=== PATIENT | female | born 1975 | race Caucasian/White ===

== ENCOUNTER 2016-11-12 09:42 | Observation (INO) ==
[2016-11-12] MEDS ORDERED: Ondansetron ODT 4 MG TAB.RAPDIS SL ONE (10:11)
[2016-11-12] MEDS ORDERED: *HR* OxyCODONE/APAP 5/325 TABLET PO ONE (10:11)
--- NOTE | 2016-11-12 10:12 | Emergency Department Note ---
Disposition Clinical Impression: Abdominal pain, Pancreatitis Disposition: Admitted As Inpatient Condition: Fair Referrals: Merlyn Dempsey [employer]GIS[employer] [Primary Care Provider] - Forms: Work/School Release, ED Satisfaction Letter Time of Disposition: 11:38 (pablito almontestephanie ) Abdominal Pain HPI - General Chief Complaint: ED Abdominal Pain Stated Complaint: Abdominal Pain Time Seen by Provider: 11/12/16 09:50 Source: patient Mode of arrival: ambulatory Limitations: no limitations Nursing Notes Reviewed: Yes Vital Signs Reviewed: Yes - History of Present Illness HPI Narrative: Seen last evening for onset of early pancreatitis numbers were mild enough they send her home pain medication and antiemetics patient did not fill the scripts as result she comes in this morning still having not filled her prescription having pain requesting possible admission since she is having nausea vomiting abdominal pain shot sharp stabbing through to the back denies any diarrhea denies any vomiting of any blood or numbness tingling recent weight gain but has not had no documented weight loss patient here for evaluation Pt Subjective Complaint: abdominal pain Onset (ago): day(s) (2) Consistency: Worsening Location: periumbilical Pain Severity: severe Pain Scale: 10 Quality: stabbing Radiation: back Improves with: nothing Worsens with: eating Context: history of similar episodes (due to pancreatitis) Associated symptoms: Reports: nausea, vomiting. Denies: diarrhea, fever, chills , constipation, dysuria, hematemesis, hematochezia, melena, hematuria, anorexia , syncope Treatments prior to arrival: prescription analgesics (did not fill script) - Related Data Home Medications Medication Instructions Recorded Confirmed Metoprolol [Lopressor] 50 mg PO BID 05/27/15 11/11/16 Omeprazole [PriLOSEC] 40 mg PO DAILY 05/19/16 11/11/16 Lisinopril [Zestril] 30 mg PO DAILY 07/19/16 11/11/16 Lipase/Protease/Amylase [Jayesh Ridley 1.5 each PO TID 08/20/16 11/11/16 12,000 Units Capsule] Previous Rx's Medication Instructions Recorded OxyCODONE/APAP 5/325 [Percocet 1 each PO Q4HR PRN #14 tablet 11/11/16 5/325 MG] Promethazine [Phenergan] 25 mg PO Q6HR PRN #14 tablet 11/11/16 Allergies Allergy/AdvReac Type Severity Reaction Status Date / Time hydrocodone [From Vicodin] AdvReac Hives Verified 05/19/16 14:19 loratadine [From Claritin] AdvReac Hives Verified 05/19/16 14:19 morphine AdvReac Hives Verified 05/19/16 14:19 naproxen AdvReac Hives Verified 05/19/16 14:19 All systems ED: reviewed and negative except as stated. Constitutional: Denies: fever, chills, weakness Eyes: Denies: vision change ENT ED: Denies: ear pain, throat pain Cardiovascular: Denies: chest pain, palpitations Respiratory: Denies: cough, dyspnea, wheezes Gastrointestinal: Reports: abdominal pain, nausea, vomiting. Denies: hematemesis Genitourinary: Denies: urgency, dysuria, frequency Musculoskeletal: Reports: back pain. Denies: neck pain Integumentary: Denies: rash Neurological: Denies: headache Psychiatric: Reports: anxiety Endocrine: Denies: fatigue Hematological/Lymphatic: Denies: easy bleeding Allergic/Immunologic: Denies: facial swelling Abdominal Pain PMH - Past Medical History Medical history: Reports: GERD, hypertension, TIA, other Female Surgical History: Reports: appendectomy, cholecystectomy, hysterectomy VOCATIONAL NURSE history: Reports: cervical cancer Psychiatric history: Reports: no psych history - Social History Smoking status: Current every day smoker Alcohol use: Reports: occasionally Drug use: Reports: none Physical Exam - General Limitations: no limitations General appearance: alert, in no apparent distress, anxious - Head Head exam: atraumatic, normocephalic, normal inspection - Eye Eye exam: Present: normal appearance, PERRL, EOMI - ENT ENT exam: normal exam, normal oropharynx, mucous membranes moist, normal external ear exam - Neck Neck exam: Present: normal inspection, full ROM, trachea midline - Chest Chest inspection: Present: normal inspection, symmetric chest wall rise - Respiratory Respiratory exam: Present: normal lung sounds bilaterally - Cardiovascular Cardiovascular exam: Present: regular rate, normal rhythm, normal heart sounds - Abdominal Exam Abdominal exam: Present: soft, tenderness, guarding, normal bowel sounds. Absent: mass, pulsatile mass - Extremities Exam Extremities exam: Present: normal inspection, full ROM, normal capillary refill. Absent: tenderness - Expanded Lower Extremity Exam Neurovascular/Tendon exam: Present: normal capillary refill, normal fine/light touch - Back Exam Back exam: Absent: normal inspection, full ROM, muscle spasm - Neurological Exam Neurological exam: Present: alert, oriented X3, CN II-XII intact - Psychiatric Psychiatric exam: Present: normal affect, normal mood - Skin Skin exam: Present: warm, dry, intact, normal color Course Course Narrative: Seen and examined given oral medication she was able to keep down patient had IV established was given IV pain medications admitted for observation [address] Martinez for further management Vital Signs Temperature 99.0 F 11/12/16 09:46 Pulse Rate 108 11/12/16 09:46 Respiratory Rate 16 11/12/16 09:46 Blood Pressure 198/88 11/12/16 09:46 O2 Sat by Pulse Oximetry 98 11/12/16 09:46 Temperature 99.0 F 11/12/16 09:46 Pulse Rate 108 11/12/16 09:46 Respiratory Rate 16 11/12/16 09:46 Blood Pressure 198/88 11/12/16 09:46 O2 Sat by Pulse Oximetry 98 11/12/16 09:46 Oxygen Delivery Oxygen Delivery Room Air Abdominal Pain - Differential Diagnosis Differential Diagnosis: Likely: abdominal pain non-specific, diverticulosis, pancreatitis, other - Medical Records Medical records reviewed: Yes I reviewed the patient's medical records. - Lab Data Lab results reviewed: Yes I reviewed the patient's lab results. Result diagrams: 11/12/16 10:34 11/12/16 10:34 Lab Results 11/12/16 11/12/16 Range/Units 10:34 10:34 WBC 7.9 (4.3-11.1) K/mcL RBC 4.75 (3.82-4.97) M/mcL Hgb 14.4 (11.5-15.4) g/dL Hct 43.1 (35.3-44.9) % MCV 90.7 (83.0-100.0) fL MCH 30.3 (28.0-33.3) pg MCHC 33.4 (31.6-35.5) g/dL RDW 16.8 H (11.5-14.5) % Plt Count 261 (140-400) K/mcL MPV 10.0 (9.4-12.4) fL Immature Gran % 0.4 (0-4) % Seg Neutrophils % 59.0 % Lymphocytes % 29.4 % Monocytes % 8.4 % Eosinophils % 2.0 % Basophils % 0.8 % Neutrophils # 4.7 (1.6-8.9) K/mcL Lymphocytes # 2.3 (0.6-4.6) K/mcL Monocytes # 0.7 (0.0-1.3) K/mcL Eosinophils # 0.2 (0.0-0.6) K/mcL Basophils # 0.1 (0.0-0.2) K/mcL Sodium 133 L (136-145) mEq/L Potassium 4.0 (3.5-4.5) mEq/L Chloride 101 (98-109) mEq/L Carbon Dioxide 23 (19-29) mEq/L BUN 6 L (7-20) mg/dL Creatinine 0.99 (0.57-1.11) mg/dL Est GFR ( Amer) > 60 (> 60) Est GFR (Non-Af Amer) > 60 (> 60) BUN/Creatinine Ratio 6 (6-26) Glucose 109 H (70-99) mg/dL Calculated Osmolality 274 L (280-300) Calcium 9.5 (8.6-10.8) mg/dL Total Bilirubin 0.6 (0.2-1.2) mg/dL AST 18 (5-34) Units/L ALT 12 (0-55) Units/L Alkaline Phosphatase 114 (38-126) Units/L Serum Total Protein 7.5 (6.0-8.3) g/dL Albumin 3.7 (3.5-5.0) g/dL Globulin 3.8 H (2.4-3.5) g/dL Albumin/Globulin Ratio 1.0 L (1.1-2.2) Lipase 217 H (8-78) Units/L Critical Care Time Critical Care Time: No
[2016-11-12 10:43] LABS: Basophils # 0.1 K/mcL (0.0-0.2); Basophils % 0.8 %; Eosinophils # 0.2 K/mcL (0.0-0.6); Hematocrit 43.1 % (35.3-44.9); Hemoglobin 14.4 g/dL (11.5-15.4); Immature Granulocytes % 0.4 % (0-4); Lymphocytes # 2.3 K/mcL (0.6-4.6); Lymphocytes % 29.4 %; Mean Corpuscular HGB Conc 33.4 g/dL (31.6-35.5); Mean Corpuscular Hemoglobin 30.3 pg (28.0-33.3); Mean Corpuscular Volume 90.7 fL (83.0-100.0); Monocytes # 0.7 K/mcL (0.0-1.3); Monocytes % 8.4 %; Neutrophils # 4.7 K/mcL (1.6-8.9); Platelet Count 261 K/mcL (140-400); Red Blood Count 4.75 M/mcL (3.82-4.97); Red Cell Distribution Width 16.8 % (11.5-14.5)
[2016-11-12 11:01] LABS: Alanine Aminotransferase 12 Units/L (0-55); Albumin 3.7 g/dL (3.5-5.0); Alkaline Phosphatase 114 Units/L (38-126); Aspartate Amino Transferase 18 Units/L (5-34); BUN/Creatinine Ratio 6 (6-26); Bilirubin,Total 0.6 mg/dL (0.2-1.2); Blood Urea Nitrogen 6 mg/dL (7-20); Calcium 9.5 mg/dL (8.6-10.8); Carbon Dioxide 23 mEq/L (19-29); Chloride 101 mEq/L (98-109); Globulin 3.8 g/dL (2.4-3.5); Glucose 109 mg/dL (70-99); Lipase 217 Units/L (8-78); Osmolality,Calculated 274 (280-300); Sodium 133 mEq/L (136-145); Total Protein 7.5 g/dL (6.0-8.3); eGFR For African Americans > 60 (> 60); eGFR For Non-African Americans > 60 (> 60)
[2016-11-12] MEDS ORDERED: 0.9 % Sodium Chloride 1,000 ML IVC ONE (11:18)
[2016-11-12] MEDS ORDERED: *HR* Promethazine 25 MG/ML VIAL IV ONE (11:18)
[2016-11-12] MEDS ORDERED: 0.9 % Sodium Chloride 1,000 ML IVC SCH (12:35)
[2016-11-12] MEDS ORDERED: Ondansetron 4 MG/2 ML VIAL IVP PRN (12:35)
[2016-11-12] MEDS ORDERED: Naloxone 0.4 MG/ML INJ IVP PRN (12:35)
[2016-11-12] MEDS: *HR* HYDROmorphone (PF) 1 MG/ML SYRINGE IVP PRN ×3 (13:14→21:33)
--- NOTE | 2016-11-12 15:12 | Internal Med History&Physical ---
Date of Encounter: 11/12/16 Time of Encounter: 14:40 Assessment and Plan (1) Acute recurrent pancreatitis Current visit: No Status: Acute She has been started on IV fluids. Parenteral analgesics will be given as needed. Diet will be progressed as tolerated. (2) Iron deficiency Current visit: Yes Status: Acute Labs from 02/21/2016 showed iron 30, transferrin saturation 7%, transferrin 290 and ferritin 25. Recheck labs in a.m. (3) Folate deficiency Current visit: Yes Status: Acute Folate level was 4.5 on 02/21/2016. We will recheck labs in a.m. (4) High blood pressure Current visit: Yes Status: Chronic Continue Zestril and Lopressor. Qualifiers: Hypertension type: essential hypertension Qualified Code(s): I10 - Essential (primary) hypertension Internal Medicine - H&P: HPI Chief complaint: Abdominal pain Admitted From: Home Plans for Post Hospital Care: Home History of present illness: Ms. Haynes is a 41 year old female who came to emergency room the evening of November 11 complaining she had onset of abdominal pain November 06. She was felt to have mild pancreatitis with lipase elevated at 162. She was treated and released. The pain persisted and worsened so she returned to emergency room this morning. She had further rise in her lipase to 217 and was admitted to [facility] floor for ongoing care needs. She was hospitalized last at [facility] July 2016 with acute recurrent pancreatitis. She has been hospitalized several times in the past 2 years at [facility] with similar abdominal pain consistent with pancreatitis. She has continued to smoke cigarettes AGAINST MEDICAL ADVICE. She states she is down to one half pack per day. 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 A CT scan done prior to transfer showed pseudocysts with maximum diameter 2.7 cm. She had laparoscopic cholecystectomy 05/19/2016 and liver biopsies which did not show significant pathology. She claims she had EGD in 2014. She has had nausea but no vomiting since onset of the abdominal pain. She had a single loose stool yesterday. Past Med Surg Social Fam HX - Past Medical History Medical history: cancer, GERD, hypertension, TIA, other Psychiatric history: no psych history - Past Surgical History Surgical History: appendectomy, cholecystectomy, hysterectomy - Social History Smoking Status: Current every day smoker Packs per day: 0.5 Smokeless Tobacco Status: No Alcohol use: none Drug use: none - Family History Father History Unknown: Yes Adopted: No Family Member Ethnicity: Non- Living Status: Age at : 53 Cause of : Brain Tumor Hx Family Cardiac Disorders: Yes Hx Family Respiratory Disorders: No Hx Family Cancer: Yes Hx Family GI Disorders: No Hx Family Genitourinary Disorders: No Hx Family Endocrine Disorder: No Hx Family Musculoskeletal Disorders: No Hx Family Neuromuscular Disorders: No Hx Family Neurologic Disorders: No Hx Family HEENT Disorders: No Hx Family Autoimmune Disorders: No Hx Family Reproductive Disorders: No Hx Family Psychosocial Disorders: No Hx Family Medical Disorders: No Mother History Unknown: Yes Adopted: No Age: 65 Family Member Ethnicity: Non- Living Status: Still Living Hx Family Cardiac Disorders: No Hx Family Respiratory Disorders: No Hx Family Cancer: No Hx Family GI Disorders: No Hx Family Genitourinary Disorders: No Hx Family Endocrine Disorder: No Hx Family Musculoskeletal Disorders: No Hx Family Neuromuscular Disorders: No Hx Family Neurologic Disorders: No Hx Family HEENT Disorders: No Hx Family Autoimmune Disorders: No Hx Family Reproductive Disorders: No Hx Family Psychosocial Disorders: No Hx Family Medical Disorders: No Internal Medicine - H&P: Meds Metoprolol [Lopressor] 50 mg PO BID 05/27/15 [History] Omeprazole [PriLOSEC] 40 mg PO DAILY 05/19/16 [History] Lisinopril [Zestril] 30 mg PO DAILY 07/19/16 [History] Lipase/Protease/Amylase [Creon Dr 12,000 Units Capsule] 1.5 each PO TID [History] OxyCODONE/APAP 5/325 [Percocet 5/325 MG] 1 each PO Q4HR PRN #14 tablet 11/11/16 [Rx] Promethazine [Phenergan] 25 mg PO Q6HR PRN #14 tablet 11/11/16 [Rx] Allergies hydrocodone [From Vicodin] Adverse Reaction (Verified 05/19/16 14:19) Hives loratadine [From Claritin] Adverse Reaction (Verified 05/19/16 14:19) Hives morphine Adverse Reaction (Verified 05/19/16 14:19) Hives naproxen Adverse Reaction (Verified 05/19/16 14:19) Hives All Systems PM: A 10-system review of systems was performed and is negative for pertinent findings except as documented above in the HPI. Review of systems: Review of systems from the July admission was reviewed and revised as below. Gen.: Her weight has increased from 64.41 kg at the March 2015 hospitalization to 68.039 kg on admission now. Cardiovascular: She has history of hypertension but no known NC heart failure angina DVT or pulmonary embolus. She thinks she had an exercise stress test in 2003. Respiratory: She has smoked since age 12 up to 1-1/2 packs per day. States she is down to one half pack per day now She has not had PFTs, does not wear home oxygen and has not been tested for sleep apnea. GI: As per history of present illness : She denies hematuria dysuria or kidney stones Neurologic: She claims she had four "mini strokes" in the past with full recovery. She had Silva's palsy with full recovery. She denies seizures. Endocrine: She denies diabetes thyroid disease or hyperlipidemia Hematology/oncology: She has polycythemia and follows with Dr. Perez at [facility]. She has had intermittent phlebotomies in the past with the most recent one approximately one year ago. Musk skeletal: She has mild DJD but denies gout or osteoporosis. She claims she has bulging disks in her back which causes back pain Psychiatric: She denies anxiety depression or other mental health issues. - Constitutional Vitals: Temp Pulse Resp BP Pulse Ox 99.0 F 108 18 157/86 99 11/12/16 12:11 11/12/16 09:46 11/12/16 12:11 11/12/16 12:11 11/12/16 12:45 Exam: Gen.: She is a well-developed well-nourished female who appears in no severe distress at present time. HEENT: Head is atraumatic and normocephalic. Eyes: EOMI. There is no scleral icterus. Mouth: Mucosa is moist. Neck: Supple and nontender. There is no thyromegaly or adenopathy noted. Heart: Regular without murmurs gallops or ectopics. Lungs: No wheezes or crackles are heard. Abdomen: Bowel sounds are absent. There is tenderness to mild to moderate palpation. Extremities: There is no cyanosis edema or clubbing noted. Dorsalis pedis and posterior tibial pulses are trace palpable bilaterally. Neurologic: Mental status: She is talkative and a good historian. Cranial nerves: Smile is symmetric. Forehead wrinkles bilaterally. Tongue protrudes midline. EOMI. Motor: There is no pronator drift. Cerebellar: Finger to nose is intact bilaterally. Skin: Warm and dry Internal Med - H&P Results - Labs CBC & Chem 7: 11/12/16 10:34 11/12/16 10:34
[2016-11-12] MEDS: 0.45 % Sodium Chloride w/KCl 20 MEQ/1,000 ML MLS IVC SCH (15:36)
[2016-11-13] MEDS: 0.45 % Sodium Chloride w/KCl 20 MEQ/1,000 ML MLS IVC SCH (01:47)
[2016-11-13] MEDS: *HR* HYDROmorphone (PF) 1 MG/ML SYRINGE IVP PRN ×3 (01:50→10:23)
[2016-11-13 05:04] LABS: Basophils # 0.1 K/mcL (0.0-0.2); Basophils % 0.7 %; Eosinophils # 0.2 K/mcL (0.0-0.6); Eosinophils % 2.6 %; Hematocrit 37.2 % (35.3-44.9); Hemoglobin 12.1 g/dL (11.5-15.4); Immature Granulocytes % 0.3 % (0-4); Lymphocytes # 2.8 K/mcL (0.6-4.6); Lymphocytes % 38.2 %; Mean Corpuscular HGB Conc 32.5 g/dL (31.6-35.5); Mean Corpuscular Hemoglobin 30.1 pg (28.0-33.3); Mean Corpuscular Volume 92.5 fL (83.0-100.0); Mean Platelet Volume 10.1 fL (9.4-12.4); Monocytes # 0.7 K/mcL (0.0-1.3); Monocytes % 9.6 %; Neutrophils # 3.5 K/mcL (1.6-8.9); Platelet Count 250 K/mcL (140-400); Red Blood Count 4.02 M/mcL (3.82-4.97); Segmented Neutrophils % 48.6 %
[2016-11-13 05:32] LABS: BUN/Creatinine Ratio 5 (6-26); Calcium 8.6 mg/dL (8.6-10.8); Carbon Dioxide 18 mEq/L (19-29); Chloride 109 mEq/L (98-109); Glucose 104 mg/dL (70-99); Lipase 155 Units/L (8-78); Osmolality,Calculated 279 (280-300); Potassium 4.6 mEq/L (3.5-4.5); Sodium 136 mEq/L (136-145); eGFR For African Americans > 60 (> 60); eGFR For Non-African Americans > 60 (> 60)
[2016-11-13 06:32] LABS: Blood Urea Nitrogen 4 mg/dL (7-20)
[2016-11-13] MEDS ORDERED: Pantoprazole 40 MG VIAL IVP SCH (09:00)
[2016-11-13] MEDS ORDERED: Lisinopril 20 MG TABLET PO SCH ×2 (09:00)
[2016-11-13 09:23] VITALS: BP 122/66
--- NOTE | 2016-11-13 09:56 | Discharge Summary ---
Date of Encounter: 11/13/16 Time of Encounter: 09:45 - Discharge Diagnosis (1) Acute recurrent pancreatitis Priority: Primary Status: Acute (2) Iron deficiency Priority: Secondary Status: Acute (3) Folate deficiency Priority: Secondary Status: Acute (4) High blood pressure Priority: Secondary Status: Chronic Qualifiers: Hypertension type: essential hypertension Qualified Code(s): I10 - Essential (primary) hypertension - Discharge Medications Home Medications: Metoprolol [Lopressor] 50 mg PO BID 05/27/15 [History] Omeprazole [PriLOSEC] 40 mg PO DAILY 05/19/16 [History] Lisinopril [Zestril] 30 mg PO DAILY 07/19/16 [History] Lipase/Protease/Amylase [Creon Dr 12,000 Units Capsule] 1.5 each PO TID [History] OxyCODONE/APAP 5/325 [Percocet 5/325 MG] 1 each PO Q4HR PRN #14 tablet 11/11/16 [Rx] Promethazine [Phenergan] 25 mg PO Q6HR PRN #14 tablet 11/11/16 [Rx] Allergies/Adverse Reactions: Allergies hydrocodone [From Vicodin] Adverse Reaction (Verified 05/19/16 14:19) Hives loratadine [From Claritin] Adverse Reaction (Verified 05/19/16 14:19) Hives morphine Adverse Reaction (Verified 05/19/16 14:19) Hives naproxen Adverse Reaction (Verified 05/19/16 14:19) Hives Date of admission: 11/12/16 11:44 Primary care physician: Merlyn Dempsey CNP - Patient Status Disposition: Home, Self-Care Condition: Fair Overall status at discharge: patient is progressing back to baseline - Discharge Instructions Follow Up With: Merlyn Dempsey CNP [Primary Care Provider] - 1 week - Diet and Activity Activity: resume usual activities as tolerated Diet: advance to your usual diet Hospital course: Ms. Haynes is a 41 year old female who came to emergency room the evening of November 11 complaining she had onset of abdominal pain November 06. She was felt to have mild pancreatitis with lipase elevated at 162. She was treated and released. The pain persisted and worsened so she returned to emergency room this morning. She had further rise in her lipase to 217 and was admitted to MedSurg floor for ongoing care needs. Initial orders were written by the emergency room physician. I saw her on November 12 and performed a history and physical. She was given IV fluids and prn parenteral analgesics. She was tolerating clear liquids on the morning of November 13 and her pain was improved. She wished to be discharged home which I felt was reasonable. She will continue to advance diet as tolerated. Iron and folate studies were ordered with results pending at time of discharge dictation. Merlyn Dempsey CNP can follow-up on these results as an outpatient. Will follow up at her PCP office within one week. - Time Spent with Patient Total time spent providing and/or coordinating discharge services: - Constitutional Vitals: Temp Pulse Resp BP Pulse Ox 97.3 F L 61 16 122/66 97 11/13/16 09:22 11/13/16 09:22 11/13/16 09:22 11/13/16 09:22 11/13/16 09:22
[2016-11-13 11:54] LABS: % Iron Saturation 8 % (15-50); Iron 32 mcg/dL (50-170); Transferrin 302 mg/dL (180-382)
[2016-11-13 12:09] LABS: Ferritin 24 ng/ml (5-204)
[2016-11-13] MEDS ORDERED: Oseltamivir Phosphate 30 MG CAPSULE PO SCH (21:00)
== END 2016-11-13 10:44 | disposition home or self-care (01) ==
LOC: INPPIK 09:42 → EMEROOPIK 09:42 → INPPIK 12:11
PROVIDERS: ADMIT Internal Medicine; ATTEND Internal Medicine

== ENCOUNTER 2016-12-11 17:29 | Observation (INO) ==
--- NOTE | 2016-12-11 17:42 | Emergency Department Note ---
Disposition Clinical Impression: Acute recurrent pancreatitis Disposition: Admitted As Inpatient Condition: Fair Referrals: Merlyn Dempsey ASSESSMENT RN [Primary Care Provider] - Forms: Work/School Release, ED Satisfaction Letter Time of Disposition: 18:41 (pablito ramirez) Abdominal Pain HPI - General Chief Complaint: ED Abdominal Pain Stated Complaint: abdominal pain and vomiting Source: patient, EMS Mode of arrival: EMS Limitations: no limitations Nursing Notes Reviewed: Yes Vital Signs Reviewed: Yes - History of Present Illness HPI Narrative: Is having abdominal pain for the past 4 days was supposed to follow up with gastroenterology but has not followed up as a day she is supposed to have a stent placed into the pancreas to drain her cyst she denies a fever chills lightheadedness dizziness she has had no burning or urgency stating she has had nausea vomiting abdominal pain patient states is no different than her typical except for rate radiate into the back Pt Subjective Complaint: abdominal pain Onset (ago): day(s) (3-4) Consistency: constant Location: periumbilical Pain Severity: severe Pain Scale: 10 Quality: sharp Radiation: back Improves with: nothing Worsens with: nothing Context: history of similar episodes Associated symptoms: Reports: nausea, vomiting. Denies: diarrhea, fever, chills , constipation, dysuria, hematemesis, hematochezia, hematuria, anorexia, syncope Treatments prior to arrival: none - Related Data Home Medications Medication Instructions Recorded Confirmed Metoprolol [Lopressor] 50 mg PO BID 05/27/15 12/11/16 Omeprazole [PriLOSEC] 40 mg PO DAILY 05/19/16 12/11/16 Lisinopril [Zestril] 30 mg PO DAILY 07/19/16 12/11/16 Lipase/Protease/Amylase [Jayesh Ridley 12,000 units PO TID 08/20/16 12/11/16 12,000 Units Capsule] Previous Rx's Medication Instructions Recorded Oxycodone HCl/Acetaminophen 1 each PO Q6H PRN #40 tablet 12/03/16 [Percocet 7.5-325 mg Tablet] Allergies Allergy/AdvReac Type Severity Reaction Status Date / Time hydrocodone [From Vicodin] AdvReac Hives Verified 05/19/16 14:19 loratadine [From Claritin] AdvReac Hives Verified 05/19/16 14:19 morphine AdvReac Hives Verified 05/19/16 14:19 naproxen AdvReac Hives Verified 05/19/16 14:19 All systems ED: reviewed and negative except as stated. Constitutional: Denies: fever, weakness Eyes: Denies: eye pain, eye discharge ENT ED: Denies: ear pain, throat pain Cardiovascular: Denies: chest pain, palpitations Respiratory: Denies: cough, dyspnea, wheezes Gastrointestinal: Reports: abdominal pain, nausea, vomiting Genitourinary: Denies: urgency, dysuria Musculoskeletal: Denies: back pain Integumentary: Denies: rash, abrasion Neurological: Denies: headache Psychiatric: Denies: anxiety Endocrine: Denies: fatigue Hematological/Lymphatic: Denies: easy bleeding Allergic/Immunologic: Denies: facial swelling Abdominal Pain PMH - Past Medical History Medical history: Reports: cancer, GERD, hypertension, TIA, other Reports: pancreatitis (Chronic) Female Surgical History: Reports: appendectomy, cholecystectomy, hysterectomy USED [employer] history: Reports: cervical cancer Psychiatric history: Reports: no psych history - Social History Smoking status: Current every day smoker Alcohol use: Reports: none Drug use: Reports: none Physical Exam - General Limitations: no limitations General appearance: alert, in no apparent distress - Head Head exam: atraumatic, normocephalic, normal inspection - Eye Eye exam: Present: normal appearance, PERRL, EOMI - ENT ENT exam: normal exam, normal oropharynx, mucous membranes moist, TM's normal bilaterally, normal external ear exam - Neck Neck exam: Present: normal inspection, full ROM, trachea midline - Chest Chest inspection: Present: normal inspection, symmetric chest wall rise - Respiratory Respiratory exam: Present: normal lung sounds bilaterally - Cardiovascular Cardiovascular exam: Present: tachycardia, normal heart sounds - Abdominal Exam Abdominal exam: Present: soft, tenderness, guarding (minimal), normal bowel sounds. Absent: mass, pulsatile mass Abdominal tenderness: Present: epigastrium, mild - Extremities Exam Extremities exam: Present: normal inspection, full ROM, normal capillary refill. Absent: tenderness, joint swelling - Expanded Lower Extremity Exam Neurovascular/Tendon exam: Present: normal capillary refill, normal fine/light touch Gait: observed and normal - Back Exam Back exam: Present: normal inspection, full ROM. Absent: muscle spasm - Neurological Exam Neurological exam: Present: alert, oriented X3, CN II-XII intact - Psychiatric Psychiatric exam: Present: normal affect, normal mood - Skin Skin exam: Present: warm, dry, intact, normal color Course Course Narrative: IV established given pain medication spoke with Dr. Martinez agrees remission transferred MedSurg pain controlled in the er has not followed up with Dr stone yet Vital Signs Temperature 97.9 F 12/11/16 17:30 Pulse Rate 111 12/11/16 17:30 Respiratory Rate 16 12/11/16 17:30 Blood Pressure 185/95 12/11/16 17:30 O2 Sat by Pulse Oximetry 100 12/11/16 17:30 Temperature 97.9 F 12/11/16 17:30 Pulse Rate 111 12/11/16 17:30 Respiratory Rate 16 12/11/16 17:30 Blood Pressure 185/95 12/11/16 17:30 O2 Sat by Pulse Oximetry 100 12/11/16 17:30 Oxygen Delivery Oxygen Delivery Room Air Abdominal Pain - Differential Diagnosis Differential Diagnosis: Likely: abdominal pain non-specific, pancreatitis - Medical Records Medical records reviewed: Yes I reviewed the patient's medical records. - Lab Data Lab results reviewed: Yes I reviewed the patient's lab results. Result diagrams: 12/11/16 17:51 12/11/16 17:51 Lab Results 12/11/16 12/11/16 12/11/16 Range/Units 17:39 17:39 17:51 WBC 11.1 (4.3-11.1) K/mcL RBC 5.21 H (3.82-4.97) M/mcL Hgb 15.8 H (11.5-15.4) g/dL Hct 46.7 H (35.3-44.9) % MCV 89.6 (83.0-100.0) fL MCH 30.3 (28.0-33.3) pg MCHC 33.8 (31.6-35.5) g/dL RDW 16.4 H (11.5-14.5) % Plt Count 345 (140-400) K/mcL MPV 9.5 (9.4-12.4) fL Immature Gran % 0.5 (0-4) % Seg Neutrophils % 67.8 % Lymphocytes % 22.2 % Monocytes % 7.6 % Eosinophils % 1.4 % Basophils % 0.5 % Neutrophils # 7.5 (1.6-8.9) K/mcL Lymphocytes # 2.5 (0.6-4.6) K/mcL Monocytes # 0.8 (0.0-1.3) K/mcL Eosinophils # 0.2 (0.0-0.6) K/mcL Basophils # 0.1 (0.0-0.2) K/mcL Sodium (136-145) mEq/L Potassium (3.5-4.5) mEq/L Chloride (98-109) mEq/L Carbon Dioxide (19-29) mEq/L BUN (7-20) mg/dL Creatinine (0.57-1.11) mg/dL Est GFR ( Amer) (> 60) Est GFR (Non-Af Amer) (> 60) BUN/Creatinine Ratio (6-26) Glucose (70-99) mg/dL Calculated Osmolality (280-300) Calcium (8.6-10.8) mg/dL Total Bilirubin (0.2-1.2) mg/dL AST (5-34) Units/L ALT (0-55) Units/L Alkaline Phosphatase (38-126) Units/L Serum Total Protein (6.0-8.3) g/dL Albumin (3.5-5.0) g/dL Globulin (2.4-3.5) g/dL Albumin/Globulin Ratio (1.1-2.2) Lipase (8-78) Units/L Urine Color Dark Yellow (Yellow) Urine Clarity Slightly Cloudy A (Clear) Urine pH 6.0 (5.0-8.0) pH Units Ur Specific [place] 1.025 (1.010-1.025) Urine Protein 100 H (Neg-Trace) mg/dL Urine Glucose (UA) Normal (Normal) mg/dL Urine Ketones Trace H (Negative) mg/dL Urine Blood Negative (Negative) Urine Nitrite Negative (Negative) Urine Bilirubin Small H (Negative) Urine Urobilinogen Normal (Normal) mg/dL Ur Leukocyte Esterase Negative (Negative) Urine Microscopic WBC Test Not Performed Ur Squamous Epith Cells Few (None-Few) per lpf Urine Mucus Moderate H (Few) Ur Culture Indicated? NO (NO) Urine Opiates Screen Positive H (Cmjiau=470) ng/mL Ur Oxycodone Screen Positive H (Cutoff= 100) ng/mL Ur Barbiturates Screen Negative (Tqmmyw=909) ng/mL Ur Phencyclidine Scrn Negative (Cutoff=25) ng/mL Ur Amphetamines Screen Negative (Tfaiud=7925) ng/mL U Benzodiazepines Scrn Negative (Jkicnq=037) ng/mL Urine Cocaine Screen Negative (Cutoff= 300) ng/mL U Marijuana (THC) Screen Negative (Cutoff = 50) ng/mL 12/11/16 Range/Units 17:51 WBC (4.3-11.1) K/mcL RBC (3.82-4.97) M/mcL Hgb (11.5-15.4) g/dL Hct (35.3-44.9) % MCV (83.0-100.0) fL MCH (28.0-33.3) pg MCHC (31.6-35.5) g/dL RDW (11.5-14.5) % Plt Count (140-400) K/mcL MPV (9.4-12.4) fL Immature Gran % (0-4) % Seg Neutrophils % % Lymphocytes % % Monocytes % % Eosinophils % % Basophils % % Neutrophils # (1.6-8.9) K/mcL Lymphocytes # (0.6-4.6) K/mcL Monocytes # (0.0-1.3) K/mcL Eosinophils # (0.0-0.6) K/mcL Basophils # (0.0-0.2) K/mcL Sodium 137 (136-145) mEq/L Potassium 3.9 (3.5-4.5) mEq/L Chloride 101 (98-109) mEq/L Carbon Dioxide 23 (19-29) mEq/L BUN 8 (7-20) mg/dL Creatinine 1.01 (0.57-1.11) mg/dL Est GFR ( Amer) > 60 (> 60) Est GFR (Non-Af Amer) 60 (> 60) BUN/Creatinine Ratio 8 (6-26) Glucose 104 H (70-99) mg/dL Calculated Osmolality 283 (280-300) Calcium 10.4 (8.6-10.8) mg/dL Total Bilirubin 0.6 (0.2-1.2) mg/dL AST 31 (5-34) Units/L ALT 120 H (0-55) Units/L Alkaline Phosphatase 334 H (38-126) Units/L Serum Total Protein 8.3 (6.0-8.3) g/dL Albumin 3.9 (3.5-5.0) g/dL Globulin 4.4 H (2.4-3.5) g/dL Albumin/Globulin Ratio 0.9 L (1.1-2.2) Lipase 237 H (8-78) Units/L Urine Color (Yellow) Urine Clarity (Clear) Urine pH (5.0-8.0) pH Units Ur Specific [place] (1.010-1.025) Urine Protein (Neg-Trace) mg/dL Urine Glucose (UA) (Normal) mg/dL Urine Ketones (Negative) mg/dL Urine Blood (Negative) Urine Nitrite (Negative) Urine Bilirubin (Negative) Urine Urobilinogen (Normal) mg/dL Ur Leukocyte Esterase (Negative) Urine Microscopic WBC Ur Squamous Epith Cells (None-Few) per lpf Urine Mucus (Few) Ur Culture Indicated? (NO) Urine Opiates Screen (Dolxkp=890) ng/mL Ur Oxycodone Screen (Cutoff= 100) ng/mL Ur Barbiturates Screen (Zltjkd=334) ng/mL Ur Phencyclidine Scrn (Cutoff=25) ng/mL Ur Amphetamines Screen (Ltranm=3287) ng/mL U Benzodiazepines Scrn (Wwjrke=842) ng/mL Urine Cocaine Screen (Cutoff= 300) ng/mL U Marijuana (THC) Screen (Cutoff = 50) ng/mL Critical Care Time Critical Care Time: No
[2016-12-11 17:57] LABS: Basophils # 0.1 K/mcL (0.0-0.2); Basophils % 0.5 %; Eosinophils # 0.2 K/mcL (0.0-0.6); Eosinophils % 1.4 %; Hematocrit 46.7 % (35.3-44.9); Hemoglobin 15.8 g/dL (11.5-15.4); Immature Granulocytes % 0.5 % (0-4); Lymphocytes # 2.5 K/mcL (0.6-4.6); Lymphocytes % 22.2 %; Mean Corpuscular HGB Conc 33.8 g/dL (31.6-35.5); Mean Corpuscular Hemoglobin 30.3 pg (28.0-33.3); Mean Corpuscular Volume 89.6 fL (83.0-100.0); Mean Platelet Volume 9.5 fL (9.4-12.4); Monocytes # 0.8 K/mcL (0.0-1.3); Monocytes % 7.6 %; Neutrophils # 7.5 K/mcL (1.6-8.9); Platelet Count 345 K/mcL (140-400); Red Blood Count 5.21 M/mcL (3.82-4.97); Red Cell Distribution Width 16.4 % (11.5-14.5); Segmented Neutrophils % 67.8 %
[2016-12-11 18:09] LABS: Bilirubin,Urine Small (Negative); Blood,Urine Negative (Negative); Clarity,Urine Slightly Cloudy (Clear); Color,Urine Dark Yellow (Yellow); Glucose,Urine (UA) Normal (Normal); Ketones,Urine Trace mg/dL (Negative); Leukocyte Esterase,Urine Negative (Negative); Nitrite,Urine Negative (Negative); Protein,Urine 100 mg/dL (Neg-Trace); Specific Gravity,Urine 1.025 (1.010-1.025); Urobilinogen,Urine Normal (Normal)
[2016-12-11 18:15] LABS: Alanine Aminotransferase 120 Units/L (0-55); Albumin 3.9 g/dL (3.5-5.0); Albumin/Globulin Ratio 0.9 (1.1-2.2); Alkaline Phosphatase 334 Units/L (38-126); Aspartate Amino Transferase 31 Units/L (5-34); BUN/Creatinine Ratio 8 (6-26); Bilirubin,Total 0.6 mg/dL (0.2-1.2); Blood Urea Nitrogen 8 mg/dL (7-20); Calcium 10.4 mg/dL (8.6-10.8); Carbon Dioxide 23 mEq/L (19-29); Chloride 101 mEq/L (98-109); Globulin 4.4 g/dL (2.4-3.5); Glucose 104 mg/dL (70-99); Lipase 237 Units/L (8-78); Osmolality,Calculated 283 (280-300); Potassium 3.9 mEq/L (3.5-4.5); Sodium 137 mEq/L (136-145); Total Protein 8.3 g/dL (6.0-8.3); eGFR For African Americans > 60 (> 60); eGFR For Non-African Americans 60 (> 60)
[2016-12-11 18:15] LABS: Squamous Epithelial Cell,Urine Few per lpf (None-Few)
[2016-12-11 18:16] LABS: Mucus,Urine Moderate (Few)
[2016-12-11 18:21] LABS: Amphetamine Screen,Urine Negative ng/mL (Cutoff=1000); Barbiturate Screen,Urine Negative ng/mL (Cutoff=200); Benzodiazepines Screen,Urine Negative ng/mL (Cutoff=200); Cannabinoid Screen,Urine Negative ng/mL (Cutoff = 50); Cocaine Screen,Urine Negative ng/mL (Cutoff= 300); Opiate Screen,Urine Positive ng/mL (Cutoff=300); Phencyclidine Screen,Urine Negative ng/mL (Cutoff=25)
[2016-12-11] MEDS ORDERED: Pantoprazole 40 MG VIAL IVP ONE (18:27)
[2016-12-11] MEDS ORDERED: *HR* HYDROmorphone (PF) 1 MG/ML SYRINGE IVP ONE (18:27)
[2016-12-11] MEDS ORDERED: Ondansetron 4 MG/2 ML VIAL IV STA (18:27)
[2016-12-11] MEDS ORDERED: 0.9 % Sodium Chloride 1,000 ML IVC SCH (18:30)
[2016-12-11] MEDS ORDERED: Ondansetron 4 MG/2 ML VIAL IVP PRN (19:39)
[2016-12-11] MEDS ORDERED: Naloxone 0.4 MG/ML INJ IVP PRN (19:39)
[2016-12-11] MEDS: 0.9 % Sodium Chloride 1,000 ML IVC SCH ×3 (20:55→23:06)
[2016-12-11] MEDS: *HR* HYDROmorphone (PF) 1 MG/ML SYRINGE IVP PRN (23:07)
[2016-12-12] MEDS: *HR* HYDROmorphone (PF) 1 MG/ML SYRINGE IVP PRN ×5 (02:57→18:41)
[2016-12-12] MEDS: 0.9 % Sodium Chloride 1,000 ML IVC SCH ×2 (06:45→13:26)
[2016-12-12] MEDS ORDERED: Pantoprazole 40 MG VIAL IVP SCH (09:00)
[2016-12-12] MEDS ORDERED: Lisinopril 20 MG TABLET PO SCH ×2 (09:00→14:06)
[2016-12-12 09:15] LABS: Alanine Aminotransferase 72 Units/L (0-55); Albumin/Globulin Ratio 0.9 (1.1-2.2); Alkaline Phosphatase 276 Units/L (38-126); Aspartate Amino Transferase 19 Units/L (5-34); BUN/Creatinine Ratio 10 (6-26); Bilirubin,Total 0.6 mg/dL (0.2-1.2); Blood Urea Nitrogen 8 mg/dL (7-20); Carbon Dioxide 18 mEq/L (19-29); Chloride 108 mEq/L (98-109); Globulin 3.4 g/dL (2.4-3.5); Glucose 97 mg/dL (70-99); Lipase 167 Units/L (8-78); Osmolality,Calculated 280 (280-300); Potassium 4.4 mEq/L (3.5-4.5); Sodium 136 mEq/L (136-145); Total Protein 6.4 g/dL (6.0-8.3); eGFR For African Americans > 60 (> 60); eGFR For Non-African Americans > 60 (> 60)
[2016-12-12] MEDS ORDERED: Ondansetron 4 MG/2 ML VIAL IVP PRN (14:06)
--- NOTE | 2016-12-12 14:09 | Internal Med History&Physical ---
Date of Encounter: 12/12/16 Time of Encounter: 13:40 Assessment and Plan (1) Acute recurrent pancreatitis Current visit: Yes Status: Acute She has been ordered IV fluids and analgesics. A repeat abdominal/pelvic CT will be done to further evaluate her known pseudocyst. (2) High blood pressure Current visit: No Status: Chronic Pressures are not well controlled. I will increase metoprolol and lisinopril. Qualifiers: Hypertension type: essential hypertension Qualified Code(s): I10 - Essential (primary) hypertension Internal Medicine - H&P: HPI Chief complaint: Abdominal pain and vomiting Admitted From: Home Plans for Post Hospital Care: Home History of present illness: Ms. Haynes is a 41 year old female who came to the emergency room stating she had worsening of chronic abdominal pain over the last 3-4 days. She developed vomiting earlier the day of admission with multiple episodes of emesis. There was no visible hematemesis. She was evaluated in the emergency room and felt to have recurrent acute pancreatitis. She was admitted to [facility] floor for ongoing care needs. She was hospitalized last at [facility] November 2016 with acute recurrent pancreatitis. She has been hospitalized several times in the past 2 years at [facility] with similar abdominal pain consistent with pancreatitis. She has continued to smoke cigarettes AGAINST MEDICAL ADVICE. 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 A CT scan done prior to transfer showed pseudocysts with maximum diameter 2.7 cm. She has not had follow-up abdominal CT since then. She had laparoscopic cholecystectomy 05/19/2016 and liver biopsies which did not show significant pathology. She claims she had EGD in 2014. Past Med Surg Social Fam HX - Past Medical History Medical history: cancer, GERD, hypertension, TIA, other Psychiatric history: no psych history - Past Surgical History Surgical History: appendectomy, cholecystectomy, hysterectomy - Social History Smoking Status: Current every day smoker Packs per day: 2 Smokeless Tobacco Status: No Alcohol use: none Drug use: none - Family History Father Adopted: No Age: 53 Family Member Ethnicity: Non- Living Status: Age at : 53 Cause of : Brain cancer Hx Family Cardiac Disorders: Yes Hx Family Respiratory Disorders: No Hx Family Cancer: Yes Hx Family GI Disorders: No Hx Family Endocrine Disorder: No Hx Family Neuromuscular Disorders: No Hx Family Neurologic Disorders: No Hx Family HEENT Disorders: No Hx Family Autoimmune Disorders: No Mother Adopted: No Age: 66 Family Member Ethnicity: Non- Living Status: Still Living Hx Family Cardiac Disorders: No Hx Family Respiratory Disorders: No Hx Family Cancer: No Hx Family GI Disorders: No Hx Family Endocrine Disorder: No Hx Family Neuromuscular Disorders: No Hx Family Neurologic Disorders: No Hx Family HEENT Disorders: No Hx Family Autoimmune Disorders: No Internal Medicine - H&P: Meds Metoprolol [Lopressor] 50 mg PO BID 05/27/15 [History] Omeprazole [PriLOSEC] 40 mg PO DAILY 05/19/16 [History] Lisinopril [Zestril] 30 mg PO DAILY 07/19/16 [History] Lipase/Protease/Amylase [Creon Dr 12,000 Units Capsule] 12,000 units PO TID [History] Oxycodone HCl/Acetaminophen [Percocet 7.5-325 mg Tablet] 1 each PO Q6H PRN #40 tablet 12/03/16 [Rx] Allergies hydrocodone [From Vicodin] Adverse Reaction (Verified 05/19/16 14:19) Hives loratadine [From Claritin] Adverse Reaction (Verified 05/19/16 14:19) Hives morphine Adverse Reaction (Verified 05/19/16 14:19) Hives naproxen Adverse Reaction (Verified 05/19/16 14:19) Hives All Systems PM: A 10-system review of systems was performed and is negative for pertinent findings except as documented above in the HPI. Review of systems: Review of systems from the November 2016 admission was reviewed and revised as below. Gen.: Her weight has minimally changed from 64.41 kg at the March 2015 hospitalization to 63.503 kg on admission now. Cardiovascular: She has history of hypertension but no known [place] heart failure angina DVT or pulmonary embolus. She thinks she had an exercise stress test in 2003. Respiratory: She has smoked since age 12 up to 1-1/2 packs per day. She has not had PFTs, does not wear home oxygen and has not been tested for sleep apnea. GI: As per history of present illness : She denies hematuria dysuria or kidney stones Neurologic: She claims she had four "mini strokes" in the past with full recovery. She had Silva's palsy with full recovery. She denies seizures. Endocrine: She denies diabetes thyroid disease or hyperlipidemia Hematology/oncology: She has polycythemia and follows with Dr. Perez at [facility]. She has had intermittent phlebotomies in the past with the most recent one in 2014. [place] skeletal: She has mild DJD but denies gout or osteoporosis. She claims she has bulging disks in her back which causes back pain Psychiatric: She denies anxiety depression or other mental health issues. - Constitutional Vitals: Temp Pulse Resp BP Pulse Ox 97.4 F L 76 16 191/82 97 12/12/16 10:54 12/12/16 10:54 12/12/16 10:54 12/12/16 10:54 12/12/16 10:54 Exam: General: She is well-developed well-nourished female lying in bed who appears in no severe distress at present time HEENT: Head is atraumatic and normocephalic. Eyes: EOMI. There is no scleral icterus.: Mucosa is moist. Neck: Supple and nontender. There is no thyromegaly or adenopathy noted. Heart: Regular without murmurs gallops or ectopics Lungs: No wheezes or crackles are heard. Abdomen: Bowel sounds are not heard. There is minimal tenderness to palpation. No masses or guarding are noted. Extremities: There is no cyanosis edema or clubbing noted. Dorsalis pedis and posterior pulses are 2 over 2 bilaterally. Neurologic: Mental status: She is talkative and a good historian. Cranial nerves: Smile is symmetric. Forehead wrinkles bilaterally. Tongue protrudes midline. EOMI. Motor: There is no pronator drift. Cerebellar: Finger to nose is intact bilaterally. Skin: Warm and dry Internal Med - H&P Results - Labs CBC & Chem 7: 12/11/16 17:51 12/12/16 04:48 Labs: BMP 12/12/16 04:48 Sodium 136 Potassium 4.4 Chloride 108 Carbon Dioxide 18 L BUN 8 Creatinine 0.80 Glucose 97 Calcium 9.0 Liver Function 12/12/16 Range/Units 04:48 Total Bilirubin 0.6 (0.2-1.2) mg/dL AST 19 (5-34) Units/L ALT 72 H (0-55) Units/L Alkaline Phosphatase 276 H (38-126) Units/L Albumin 3.0 L D (3.5-5.0) g/dL
--- NOTE | 2016-12-12 19:43 | Discharge Summary ---
Date of Encounter: 12/12/16 Time of Encounter: 19:00 - Discharge Diagnosis (1) Acute recurrent pancreatitis Priority: Primary Status: Acute (2) High blood pressure Priority: Secondary Status: Chronic Qualifiers: Hypertension type: essential hypertension Qualified Code(s): I10 - Essential (primary) hypertension - Discharge Medications Home Medications: Metoprolol [Lopressor] 50 mg PO BID 05/27/15 [History] Omeprazole [PriLOSEC] 40 mg PO DAILY 05/19/16 [History] Lisinopril [Zestril] 30 mg PO DAILY 07/19/16 [History] Lipase/Protease/Amylase [Creon Dr 12,000 Units Capsule] 12,000 units PO TID [History] Oxycodone HCl/Acetaminophen [Percocet 7.5-325 mg Tablet] 1 each PO Q6H PRN #40 tablet 12/03/16 [Rx] Allergies/Adverse Reactions: Allergies hydrocodone [From Vicodin] Adverse Reaction (Verified 05/19/16 14:19) Hives loratadine [From Claritin] Adverse Reaction (Verified 05/19/16 14:19) Hives morphine Adverse Reaction (Verified 05/19/16 14:19) Hives naproxen Adverse Reaction (Verified 05/19/16 14:19) Hives Procedures/tests Complete & Pending: Procedures Performed prior 72 hours Category Date Time Status CT abd pelvis wo no iv no oral [CT] Routine Cat Scan 12/12/16 14:04 Draft Date of admission: 12/11/16 19:03 Primary care physician: Merlyn Dempsey CNP Consults: 12/11/16 20:37 Consult to Nutrition [CONS] Routine Comment: Consulting Provider: NUTRITION Reason for Dietary Consult: MST Score - Patient Status Disposition: Transfer Short-Term Hosp Condition: Fair - Discharge Instructions Hospital course: Ms. Haynes is a 41 year old female who came to the emergency room stating she had worsening of chronic abdominal pain over the last 3-4 days. She developed vomiting earlier the day of admission with multiple episodes of emesis. There was no visible hematemesis. She was evaluated in the emergency room and felt to have recurrent acute pancreatitis. She was admitted to [facility] for ongoing care needs. She was hospitalized last at [facility] November 2016 with acute recurrent pancreatitis. She has been hospitalized several times in the past [address] [facility] with similar abdominal pain consistent with pancreatitis. She has continued to smoke cigarettes AGAINST MEDICAL ADVICE. 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 June 2016. A CT scan done prior to transfer showed pseudocysts with maximum diameter 2.7 cm. She has not had follow-up abdominal CT since then. She had laparoscopic cholecystectomy 05/19/2016 and liver biopsies which did not show significant pathology. She claims she had EGD in 2014. Initial orders were written by the emergency physician. I saw her the afternoon of December 12 and performed history and physical. A repeat abdominal/ pelvic CT was done to further evaluate her known pseudocysts. There was interval increase in size of multiloculated cystic collection in the region of the pancreatic head now measuring 7.1 x 5.5 cm compared to 5.2 x 4.1 cm previously. The largest cystic component now measures 3.5 x 3.3 cm compared to 2.7 x 2.2 cm previously. There was mild surrounding stranding suggestive of inflammation. I discussed these findings with her and she wished to be transferred to [facility] for ongoing care needs. Contact was made with [place] and she was accepted in transfer the evening of December 12. - Time Spent with Patient Total time spent providing and/or coordinating discharge services: - Constitutional Vitals: Temp Pulse Resp BP Pulse Ox 98.6 F 92 18 198/100 95 12/12/16 18:18 12/12/16 18:18 12/12/16 18:18 12/12/16 18:18 12/12/16 18:18
[2016-12-12] MEDS ORDERED: *HR* HYDROmorphone (PF) 1 MG/ML SYRINGE IVP ONE (20:46)
[2016-12-12 21:01] VITALS: BP 172/93
== END 2016-12-12 21:15 | disposition short-term general hospital (02) ==
LOC: INPPIK 17:29 → EMEROOPIK 17:29 → INPPIK 20:12
PROVIDERS: ADMIT Internal Medicine; ATTEND Internal Medicine

== ENCOUNTER 2022-03-12 03:38 | Observation (INO) ==
[2022-03-12] MEDS ORDERED: Furosemide 40 MG/4 ML VIAL IVP ONE (04:04)
[2022-03-12 05:00] LABS: Basophils # 0.1 K/mcL (0.0-0.2); Basophils % 0.5 %; Eosinophils # 0.4 K/mcL (0.0-0.6); Eosinophils % 2.7 %; Hematocrit 37.8 % (35.3-44.9); Hemoglobin 11.7 g/dL (11.5-15.4); Immature Granulocytes % 1.1 % (0-4); Lymphocytes # 3.2 K/mcL (0.6-4.6); Lymphocytes % 24.7 %; Mean Corpuscular Hemoglobin 28.4 pg (28.0-33.3); Mean Corpuscular Volume 91.7 fL (83.0-100.0); Mean Platelet Volume 9.3 fL (9.4-12.4); Monocytes % 7.9 %; Neutrophils # 8.3 K/mcL (1.6-8.9); Platelet Count 297 K/mcL (140-400); Red Blood Count 4.12 M/mcL (3.82-4.97); Red Cell Distribution Width 16.2 % (11.5-14.5); Segmented Neutrophils % 63.1 %; White Blood Count 13.1 K/mcL (4.3-11.1)
[2022-03-12 05:14] LABS: Bilirubin,Urine Negative (Negative); Blood,Urine Trace-lysed (Negative); Clarity,Urine Clear (Clear); Color,Urine Yellow (Yellow); Glucose,Urine (UA) Normal (Normal); Ketones,Urine Negative (Negative); Leukocyte Esterase,Urine Negative (Negative); Nitrite,Urine Negative (Negative); Protein,Urine Negative (Neg-Trace); Specific Gravity,Urine 1.015 (1.010-1.025); Urobilinogen,Urine Normal (Normal)
[2022-03-12 05:17] LABS: Calcium 9.1 mg/dL (8.6-10.3); Potassium 3.6 mEq/L (3.5-5.1)
[2022-03-12 05:23] LABS: Troponin I 0.04 ng/mL (< 0.04)
[2022-03-12] MEDS ORDERED: Naloxone 0.4 MG/ML INJ IVP PRN (06:24)
[2022-03-12 07:56] VITALS: RESP 18
[2022-03-12] MEDS ORDERED: Ipratropium/Albuterol Neb 3 ML IH PRN (08:37)
[2022-03-12] MEDS ORDERED: Furosemide 20 MG/2 ML VIAL IVP SCH (09:00)
[2022-03-12] MEDS ORDERED: Budesonide/Formoterol 160/4.5 1 PUFF INH IH SCH (10:00)
[2022-03-12] MEDS ORDERED: Hydrocortisone 10 MG TABLET PO SCH ×3 (10:30→16:00)
[2022-03-12] MEDS ORDERED: NIFEdipine XL (24 HR) 60 MG TAB.ER.24 PO SCH (10:30)
[2022-03-12] MEDS ORDERED: Megestrol Acetate 400 MG/10 ML UDC PO SCH (10:30)
[2022-03-12] MEDS ORDERED: Ondansetron ODT 4 MG TAB.RAPDIS PO PRN (11:13)
[2022-03-12 11:25] VITALS: BP 154/71; PULSE 91; TEMP 98.1; O2SAT 90
[2022-03-12] MEDS ORDERED: Cholecalciferol (D-3) 1,000 UNIT (25MCG) TABLET PO SCH (11:30)
[2022-03-12] MEDS ORDERED: *HR* Buprenorphine HCl 8 MG TAB.SUBL SL SCH (12:00)
[2022-03-12] MEDS ORDERED: Perflutren Lipid Microsphere 1.3 ML in 0.9 % Sodium Chloride 8.7 ML IVP PRN (14:32)
[2022-03-12] MEDS ORDERED: Nicotine 14 MG PATCH.TD24 TD SCH (14:45)
[2022-03-12] MEDS ORDERED: Famotidine 20 MG TABLET PO SCH (14:45)
[2022-03-12] MEDS ORDERED: Doxycycline 100 MG in 0.9 % Sodium Chloride Mini Bag 100 ML IVPB SCH (15:00)
[2022-03-12 17:00] LABS: Adenovirus Not Detected (Not Detect); Bordetella Pertussis Not Detected (Not Detect); Chlamydophila pneumoniae Not Detected (Not Detect); Coronavirus 229E Not Detected (Not Detect); Coronavirus HKU1 Not Detected (Not Detect); Coronavirus NL63 Not Detected (Not Detect); Coronavirus OC43 Not Detected (Not Detect); Human Metapneumovirus Not Detected (Not Detect); Human Rhinovirus/Enterovirus Not Detected (Not Detect); Influenza A Subtype 2009 H1 Not Detected (Not Detect); Influenza B Not Detected (Not Detect); Mycoplasma pneumoniae Not Detected (Not Detect); Parainfluenza Virus 1 Not Detected (Not Detect); Parainfluenza Virus 2 Not Detected (Not Detect); Parainfluenza Virus 3 Not Detected (Not Detect); Parainfluenza Virus 4 Not Detected (Not Detect); Respiratory Syncytial Virus Not Detected (Not Detect); SARS-CoV-2 Not Detected (Not Detect)
[2022-03-13] MEDS ORDERED: Folic Acid 1 MG TABLET PO SCH (09:00)
[2022-03-13] MEDS ORDERED: Aspirin 81 MG TAB.CHEW PO SCH (09:00)
== END 2022-03-12 19:00 | disposition home or self-care (01) ==
LOC: INPPIK 03:38 → EMEROOPIK 03:38 → INPPIK 07:48
PROVIDERS: ADMIT Family Medicine; ATTEND Family Medicine

== ENCOUNTER 2022-05-21 22:26 | Observation (INO) ==
[2022-05-21] MEDS ORDERED: Bumetanide 1 MG/4 ML VIAL IVP ONE (22:56)
[2022-05-21 23:23] LABS: Basophils # 0.1 K/mcL (0.0-0.2); Basophils % 0.6 %; Eosinophils # 0.2 K/mcL (0.0-0.6); Eosinophils % 1.1 %; Hematocrit 35.5 % (35.3-44.9); Hemoglobin 11.5 g/dL (11.5-15.4); Immature Granulocytes % 2.9 % (0-4); Lymphocytes # 2.5 K/mcL (0.6-4.6); Lymphocytes % 14.7 %; Mean Corpuscular HGB Conc 32.4 g/dL (31.6-35.5); Mean Corpuscular Hemoglobin 28.4 pg (28.0-33.3); Mean Corpuscular Volume 87.7 fL (83.0-100.0); Monocytes # 1.2 K/mcL (0.0-1.3); Monocytes % 7.2 %; Neutrophils # 12.6 K/mcL (1.6-8.9); Platelet Count 320 K/mcL (140-400); Red Blood Count 4.05 M/mcL (3.82-4.97); Red Cell Distribution Width 16.8 % (11.5-14.5); Segmented Neutrophils % 73.5 %; White Blood Count 17.1 K/mcL (4.3-11.1)
[2022-05-21 23:45] LABS: Albumin 3.8 g/dL (3.5-5.7); Albumin/Globulin Ratio 1.2 (1.1-2.2); Bilirubin,Total 0.3 mg/dL (0.3-1.0); Calcium 9.1 mg/dL (8.6-10.3); Globulin 3.3 g/dL (2.4-3.5); Potassium 3.1 mEq/L (3.5-5.1); Total Protein 7.1 g/dL (6.4-8.9)
[2022-05-21 23:46] LABS: Troponin I 0.04 ng/mL (< 0.04)
[2022-05-22] MEDS ORDERED: Ampicillin/Sulbactam 3,000 MG in 0.9 % Sodium Chloride Mini Bag 100 ML IVPB ONE (02:00)
[2022-05-22] MEDS ORDERED: Naloxone 0.4 MG/ML INJ IVP PRN (02:33)
[2022-05-22] MEDS ORDERED: Acetaminophen 325 MG TABLET PO PRN (02:33)
[2022-05-22] MEDS ORDERED: Ondansetron 4 MG/2 ML VIAL IVP PRN (02:33)
[2022-05-22] MEDS ORDERED: Melatonin 3 MG TABLET PO PRN (02:33)
[2022-05-22 03:05] LABS: Bilirubin,Urine Negative (Negative); Blood,Urine Negative (Negative); Clarity,Urine Clear (Clear); Color,Urine Yellow (Yellow); Glucose,Urine (UA) Normal (Normal); Ketones,Urine Negative (Negative); Leukocyte Esterase,Urine Negative (Negative); Nitrite,Urine Negative (Negative); PH,Urine 7.5 pH Units (5.0-8.0); Protein,Urine Negative (Neg-Trace); Specific Gravity,Urine 1.015 (1.010-1.025); Urobilinogen,Urine Normal (Normal)
[2022-05-22 06:37] LABS: Basophils # 0.1 K/mcL (0.0-0.2); Basophils % 0.9 %; Eosinophils # 0.2 K/mcL (0.0-0.6); Eosinophils % 1.2 %; Hematocrit 36.2 % (35.3-44.9); Hemoglobin 11.6 g/dL (11.5-15.4); Immature Granulocytes % 2.4 % (0-4); Lymphocytes # 2.4 K/mcL (0.6-4.6); Lymphocytes % 17.1 %; Mean Corpuscular Hemoglobin 28.3 pg (28.0-33.3); Mean Corpuscular Volume 88.3 fL (83.0-100.0); Mean Platelet Volume 10.7 fL (9.4-12.4); Monocytes # 1.1 K/mcL (0.0-1.3); Monocytes % 7.5 %; Neutrophils # 9.9 K/mcL (1.6-8.9); Platelet Count 282 K/mcL (140-400); Segmented Neutrophils % 70.9 %
[2022-05-22] MEDS ORDERED: Potassium Chloride Elixir 20 MEQ/15 ML UDC PO ONE (06:46)
[2022-05-22 06:47] LABS: INR 1.1; Prothrombin Time 12.1 Seconds (9.4-12.1)
[2022-05-22 06:49] LABS: Activated Partial Thrombo Time 27.6 Seconds (26.0-36.0)
[2022-05-22 08:21] LABS: Albumin 3.8 g/dL (3.5-5.7); Albumin/Globulin Ratio 1.2 (1.1-2.2); Bilirubin,Total 0.3 mg/dL (0.3-1.0); Calcium 9.7 mg/dL (8.6-10.3); Globulin 3.2 g/dL (2.4-3.5); Magnesium 2.1 mg/dL (1.6-2.6); Phosphorous 3.6 mg/dL (2.7-4.5); Potassium 3.2 mEq/L (3.5-5.1)
[2022-05-22] MEDS ORDERED: Bumetanide 1 MG/4 ML VIAL IVP SCH (09:00)
[2022-05-22] MEDS: Budesonide/Formoterol 160/4.5 1 PUFF INH IH SCH ×2 (11:00→20:55)
[2022-05-22] MEDS: *HR* Heparin 5,000 UNIT/ML VIAL SQ SCH ×3 (11:16→21:48)
[2022-05-22] MEDS: Megestrol Acetate 400 MG/10 ML UDC PO SCH ×2 (11:34→20:09)
[2022-05-22] MEDS: Lactobacillus 1 EACH CAP.SPRINK PO SCH ×2 (11:35→20:08)
[2022-05-22] MEDS: Aspirin 81 MG TAB.CHEW PO SCH (11:35)
[2022-05-22] MEDS: NIFEdipine XL (24 HR) 60 MG TAB.ER.24 PO SCH (11:35)
[2022-05-22] MEDS: Bumetanide 1 MG/4 ML VIAL IVP SCH ×2 (11:35→17:32)
[2022-05-22] MEDS: Hydrocortisone 10 MG TABLET PO SCH ×2 (11:36→17:31)
[2022-05-22] MEDS: cephALEXin 500 MG CAPSULE PO SCH ×4 (11:36→20:19)
[2022-05-22] MEDS: *HR* Buprenorphine HCl 8 MG TAB.SUBL SL SCH ×2 (11:38→20:11)
[2022-05-23 03:19] VITALS: RESP 17
[2022-05-23] MEDS: *HR* Heparin 5,000 UNIT/ML VIAL SQ SCH ×2 (05:49→13:05)
[2022-05-23 06:30] VITALS: BP 153/68; PULSE 67; TEMP 98.8
[2022-05-23 07:49] LABS: Basophils # 0.1 K/mcL (0.0-0.2); Basophils % 0.5 %; Eosinophils # 0.1 K/mcL (0.0-0.6); Eosinophils % 0.4 %; Hematocrit 36.7 % (35.3-44.9); Hemoglobin 11.5 g/dL (11.5-15.4); Lymphocytes # 2.5 K/mcL (0.6-4.6); Mean Corpuscular HGB Conc 31.3 g/dL (31.6-35.5); Mean Corpuscular Hemoglobin 28.3 pg (28.0-33.3); Mean Corpuscular Volume 90.2 fL (83.0-100.0); Mean Platelet Volume 9.1 fL (9.4-12.4); Monocytes # 1.1 K/mcL (0.0-1.3); Monocytes % 8.2 %; Platelet Count 318 K/mcL (140-400); Red Blood Count 4.07 M/mcL (3.82-4.97); Red Cell Distribution Width 17.3 % (11.5-14.5); Segmented Neutrophils % 69.9 %; White Blood Count 12.9 K/mcL (4.3-11.1)
[2022-05-23 07:58] LABS: Calcium 9.2 mg/dL (8.6-10.3); Potassium 3.5 mEq/L (3.5-5.1)
[2022-05-23] MEDS ORDERED: Folic Acid 1 MG TABLET PO SCH (09:00)
[2022-05-23] MEDS: Megestrol Acetate 400 MG/10 ML UDC PO SCH (09:19)
[2022-05-23] MEDS: NIFEdipine XL (24 HR) 60 MG TAB.ER.24 PO SCH (09:20)
[2022-05-23] MEDS: Aspirin 81 MG TAB.CHEW PO SCH (09:20)
[2022-05-23] MEDS: Lactobacillus 1 EACH CAP.SPRINK PO SCH (09:20)
[2022-05-23] MEDS: *HR* Buprenorphine HCl 8 MG TAB.SUBL SL SCH (09:20)
[2022-05-23] MEDS: Hydrocortisone 10 MG TABLET PO SCH ×2 (09:20→15:23)
[2022-05-23] MEDS: cephALEXin 500 MG CAPSULE PO SCH ×2 (09:21→13:05)
[2022-05-23] MEDS: Bumetanide 1 MG/4 ML VIAL IVP SCH (09:21)
[2022-05-23] MEDS: Budesonide/Formoterol 160/4.5 1 PUFF INH IH SCH (09:44)
[2022-05-23 09:47] VITALS: O2SAT 96
[2022-05-26] MEDS ORDERED: Cholecalciferol (D-3) 1,000 UNIT (25MCG) TABLET PO SCH (10:07)
== END 2022-05-23 16:48 | disposition home or self-care (01) ==
LOC: EMEROOPIK 22:26 → INPPIK 22:26
PROVIDERS: ADMIT Internal Medicine; ATTEND Internal Medicine